=== PATIENT | female | born 1990 | race Caucasian/White ===

== ENCOUNTER 2021-10-04 05:35 | Inpatient (IN) ==
--- NOTE | 2021-09-24 11:36 | History & Physical Report ---
Date of Service September 24, 2021 Assessment & Plan (1) with 39 completed weeks gestation: (2) Previous delivery affecting , antepartum: Plan: Plan repeat . consent reviewed and signed. Risks of bleeding, transfusion, infection, poor wound healing, damage to surrounding structures with need for further surgery or hospitalization, injury to baby, heart attack, blood clot, stoke, . Questions asked and answered, consent reviewed and signed. Patient asks if I would removed the fibroid at the time of surgery. Because of concern for bleeding, we do not usually do this. History of Present Illness Chief Complaint: presents for repeat . Primary Care Provider: Bina Saha DO Patient is a 31yowf who presents at 39+ weeks for repeat . First complicated by coming into labor wtih srom, active labor and having a hand presentation into the vagina resulting in c/s for malpresentation. This has been uncomplicated. Being treated for hypothyroidism. GBS+. Patient had a pedunculated EDINSON fibroid noted at her first c/s with some omentum adhesed to it. Also I noted that there was a thin edinson. This fibroid had been noted on ultrasound in this as well. OB Labs: Blood Type AB Positive 02/27/21 Antibody Screen NEGATIVE 02/27/21 Hemoglobin 10.2 g/dL (12.0-16.0) L 08/14/21 Hematocrit 31.4 % (37-47) L 08/14/21 Mean Corpuscular Volume 84.2 fL (80-100) 02/27/21 Platelet Count 289 K/uL (130-400) 02/27/21 Rubella IgG Antibody Immune (Immune) 02/27/21 Rapid Plasma Reagin Nonreactive (Nonreactive) 02/27/21 Hepatitis B Surface Antigen Neg (Neg) 02/27/21 HIV (1&2) Ab and P24 Ag, 4th Gener Neg (Neg) 02/27/21 Glucose 1 Hour 50 gm Load 100 mg/dl (70-130) 07/17/21 OB Optional Labs: Chlamydia trachomatis RNA NOT DETECTED (NOT DETECTED) 02/27/21 Neisseria gonorrhoeae RNA NOT DETECTED (NOT DETECTED) 02/27/21 Labs Reviewed: declines cf/sma, quad, cfdna - SLN Allergies Allergy/AdvReac Type Severity Reaction Status Date / Time Penicillins Allergy itching Verified 09/24/21 09:34 Patient History Medical History Abdominal pain Acute abdominal pain Amniotic fluid leaking delivery delivered Fever Hypokalemia Malpresentation of fetus Pyelonephritis Right flank pain Second trimester Varicella vaccination Vomiting and diarrhea Surgical History S/P section Family History Other Adopted Social History Smoking Status: Never smoker Hx Alcohol Use: No Hx Substance Use: No marital status: marital status details: lives with spouse, son, in-laws, no pets Current Living Situation: Spouse and Family Current Living Situation Comment: [facility] [place] (41) [phone] current occupational status: employed current occupation: [employer] Feels Safe at Home: Yes OB History 09/2015--38 weeks, , malpresentation with hand presentation [employer] WORKER History noncontributory Physical Exam Constitutional: WD/WN, vitals as above Neck: trachea midline, no thyromegaly Respiratory: normal respiratory effort, lungs clear to auscultation Cardiovascular: RRR, no murmur, no edema Extremities: no calf tenderness and no edema Gastrointestinal (Abdomen): soft, gravid, nt Coding Level of Care Code None Diagnoses with 39 completed weeks gestation Z3A.39 Previous delivery affecting , antepartum O34.219
--- NOTE | 2021-09-30 13:22 | Anesthesiology Consultation ---
Date of Service September 30, 2021 Assessment & Plan (1) Encounter for pre-operative examination: COVID screening: Per assessment on 09/30: Travel screen negative, no known COVID- 19 positive contacts or current COVID-19 related symptoms. Patient vaccinated. Surgeon arranging preop COVID testing. Awaiting results. Chart Review Chart Review: entry level sales consultant initiated History Surgery Operation Date: 10/04/21 10:05 Proposed Procedures p Section (Delivery of Baby Through Abdominal Incision) - Deb Hollis MD, FACOG Height/Weight Height: 5 ft 2 in Weight: 54.885 kg Allergies Allergy/AdvReac Type Severity Reaction Status Date / Time Penicillins AdvReac Intermediate Vaginal Verified 09/30/21 13:20 yeast infection Medications Home Medications Medication Instructions Recorded Confirmed Last Taken prenat.vits,nahum,rzv-cmes-xtgmu 1 tab PO QAM 02/20/21 09/30/21 Unknown breast pump #1 ea 08/28/21 09/30/21 Unknown breast pump #1 ea 08/28/21 09/30/21 Unknown ferrous sulfate 325 mg (65 mg 325 mg PO QAM 09/30/21 09/30/21 Unknown iron) tablet levothyroxine 100 mcg tablet 100 mcg PO QAM 09/30/21 09/30/21 Unknown Past Medical History Medical History Hypothyroidism Past Family History Family History Other Adopted Past Surgical History Surgical History H/O wisdom tooth extraction S/P section Social History Smoking Status: Never smoker Do You Dip or Chew Tobacco: No Hx Alcohol Use: No Hx Substance Use: No substance use type: does not use Testing Laboratory Results Urine Color Cancelled 07/17/21 Unknown Urine Appearance Cancelled 07/17/21 Unknown Urine pH Cancelled 07/17/21 Unknown Ur Specific [place] Cancelled 07/17/21 Unknown Urine Protein Cancelled 07/17/21 Unknown Urine Glucose (UA) Cancelled 07/17/21 Unknown Urine Ketones Cancelled 07/17/21 Unknown Urine Nitrite Cancelled 07/17/21 Unknown Ur Leukocyte Esterase Cancelled 07/17/21 Unknown Urine WBC (Auto) Cancelled 07/17/21 Unknown Urine RBC (Auto) Cancelled 07/17/21 Unknown U Hyaline Cast (Auto) Cancelled 07/17/21 Unknown U Epithel Cells (Auto) Cancelled 07/17/21 Unknown Urine Bacteria (Auto) Cancelled 07/17/21 Unknown 07/17/21 UA negative 08/14/21 H/H 10.5/31.4
[2021-10-04] MEDS ORDERED: LACTATED RINGER'S 1,000 ML IV SCH ×2 (06:00→10:21)
[2021-10-04] MEDS ORDERED: CITRIC ACID/SODIUM CITRATE 15 ML UDC PO SCH (06:00)
[2021-10-04 06:22] LABS: Basophils # (auto) 0.01 K/uL (0-0.2); Basophils % (auto) 0.1 %; Eosinophils # (auto) 0.04 K/uL (0-0.5); Eosinophils % (auto) 0.6 %; Hemoglobin 10.5 g/dL (12.0-16.0); Immature Granulocytes # (auto) 0.01 K/uL (0.00-0.02); Immature Granulocytes % (auto) 0.1 %; Lymphocytes # (auto) 1.77 K/uL (1.2-3.4); Lymphocytes % (auto) 25.7 %; Mean Corpuscular Hemoglobin 28.3 pg (25-34); Mean Corpuscular Volume 86.3 fL (80-100); Monocytes # (auto) 0.54 K/uL (0.11-0.59); Monocytes % (auto) 7.8 %; Neutrophils # (auto) 4.52 K/uL (1.4-6.5); Neutrophils % (auto) 65.7 %; Platelet Count 208 K/uL (130-400); RDW Coefficient of Variation 14.9 % (11.5-14.5); RDW Standard Deviation 46.7 fL (36.4-46.3); Red Blood Count 3.71 M/uL (4.2-5.4); White Blood Count 6.89 K/uL (4.8-10.8)
[2021-10-04 06:24] LABS: Mean Corpuscular Hgb Conc 32.8 g/dL (32-36)
[2021-10-04] MEDS ORDERED: MoRPHine SULFATE PF 1 MG/ML 10 ML AMP/VIAL ONE (06:58)
--- NOTE | 2021-10-04 07:12 | History & Physical Bridge Note ---
Date of Service October 04, 2021 History & Physical Bridge Note I have examined the patient, reviewed the History & Physical and in the interval since the performance of the History & Physical I have noted the following changes of clinical significance: no changes noted
[2021-10-04] MEDS: ceFAZolin 2,000 MG in SYRINGE 0 ML IV SCH ×2 (07:23→07:33)
[2021-10-04] MEDS ORDERED: MoRPHine SULFATE PF 1 MG/ML 10 ML AMP/VIAL INT SPINAL ONE (07:26)
[2021-10-04] MEDS ORDERED: ePHEDrine sulfate 50 MG/ML AMP IV PRN (07:26)
[2021-10-04] MEDS ORDERED: NALOXONE HCL 0.08 MG in SYRINGE 1.8 ML IV PRN (07:26)
[2021-10-04] MEDS ORDERED: NALOXONE HCL 0.4 MG/1 ML VIAL/CARP IV PRN (07:26)
[2021-10-04] MEDS ORDERED: NALBUPHINE HCL INJ 10 MG/ML AMP IV PRN (07:26)
[2021-10-04] MEDS ORDERED: diphenhydrAMINE 50 MG/ML VIAL IV PRN (07:26)
[2021-10-04] MEDS ORDERED: ONDANSETRON INJ 2 MG/ML 2 ML VIAL IV PRN (07:26)
[2021-10-04] MEDS ORDERED: MoRPHine SULFATE 2 MG/ML CARP IV PRN (07:26)
[2021-10-04] MEDS ORDERED: PROMETHAZINE HCL 6.25 MG in SODIUM CHLORIDE 0.9% 50 ML IV PRN (07:26)
[2021-10-04] MEDS ORDERED: NALOXONE HCL 1 MG in SODIUM CHLORIDE 0.9% 1000ML 1,000 ML IV PRN (07:26)
[2021-10-04] MEDS ORDERED: LACTATED RINGER'S 500 ML IV PRN (07:26)
[2021-10-04] MEDS ORDERED: NO NARCOTICS OR SEDATIVES SCH (07:30)
[2021-10-04] MEDS ORDERED: DC INTRASPINAL MORPHINE SCH (07:30)
[2021-10-04] MEDS ORDERED: SODIUM CHLORIDE 0.9% 1000ML 1,000 ML IV SCH (07:30)
[2021-10-04] MEDS ORDERED: PHENYLEPHRINE 100MCG/ML 5ML SYR ONE (08:04)
[2021-10-04] MEDS ORDERED: ePHEDrine sulfate 50 MG/ML SYR ONE (08:04)
[2021-10-04] MEDS ORDERED: PROPOFOL IV EMULSION 10 MG/ML 20 ML VIAL IV ONE (08:04)
[2021-10-04] MEDS ORDERED: METOCLOPRAMIDE HCL INJ 5 MG/ML 2 ML VIAL ONE (08:04)
[2021-10-04] MEDS ORDERED: ONDANSETRON INJ 2 MG/ML 2 ML VIAL ONE (08:04)
[2021-10-04] MEDS ORDERED: CARBOPROST TROMETHAMINE 250 MCG/ML AMPUL ONE (08:11)
--- NOTE | 2021-10-04 08:37 | Operative Report ---
PG Post Operative Report Pre & Post Diagnosis Operation Date: 10/04/21 07:30 Pre-Op Diagnosis: 1. Term at 39 weeks. 2. Previous section, desires repeat. 3. posterior right pedunculated fibroid Post-Op Diagnosis: Same I identified the patient and participated in the time-out.: Yes Procedure Operation Date: 10/04/21 07:30 Actual Procedures p repeat lower transverse Section (Delivery of Baby Through Abdominal Incision) with the of a live male child at 0805 in Main OR 3. - Deb Hollis MD, FACOG Surgeon Deb Hollis MD, FACOG [place] Operator Dr. Garcia, Dr. Duffy Estimated Blood Loss 500 Findings Consistent with Post-Op Diagnosis viable male , nl tubes and ovaries, 3cm pedunculated posterior right fibroid, very thin charly Fluids 3000 Specimens none Drains crowley Anesthesia Type Spinal Complications none Disposition Accompanied Patient To Recovery: No Disposition: L&D Indications 31yowf at 39+ weeks for elective repeat Description of Procedure The patient was taken to the operating room where she was identified verbally and by bracelet. She was seated on the operating table where a spinal anesthetic was placed by anesthesia. She was then placed in the supine position with a leftward tilt. A Crowley catheter was placed sterilely. the patient was prepped and draped in a normal standard fashion. the anesthetic was tested and found to be adequate. A time-out was held, identifying correct patient, procedure, positioning and preoperative antibiotics. There were no concerns. A Pfannenstiel skin incision was made with a knife and taken down to the unde rlying layer of fascia with the knife and Bovie electrocautery. The keloid part of the incision was excised. Bleeding was attended to with the Bovie. The fascia was incised in the midline with the knife and taken out laterally with scissors. The superior edge of the fascial incision was grasped, elevated and the underlying layer of rectus muscle was taken off bluntly and with scissors. In a similar fashion, the inferior edge of the fascial incision was grasped, elevated and the underlying layer of rectus muscle was taken off bluntly and with scissors. The muscles were bluntly in the midline. The peritoneum was entered bluntly. The incision was then stretched. The bladder blade was placed. The vesicouterine peritoneum was identified, entered with scissors and taken out laterally with scissors. The bladder flap was created digitally A hysterotomy incision was scored with a knife and the incision was stretched superiorly and inferiorly with the flight control tower operator's fingers. The operators hand was placed into the incision and the head was delivered atraumatically. No nuchal cord. The nose and mouth were bulb suctioned. the rest of the infant was then delivered without difficulty. The nose and mouth were again bulb suctioned. The cord was clamped and cut and the was then handed off to the awaiting odd bundle worker for drying and attention. Cord blood and segment were obtained. The placenta was expressed. The uterus was exteriorized and cleared of all clot and debris with moistened laparotomy sponges. The hysterotomy incision was repaired in two layers, the first in a running locked layer, the second in an imbricating layer. The charly was quite thin. Hemostasis was noted to be good. Posterior cul-de-sac was irrigated and cleared of all clot and debris. Some filmy adhesions of the omentum to the posterior fibroid were taken off with cautery. The hysterotomy incision was again inspected and found to be hemostatic. the uterus was reinteriorized. Hysterotomy incision was again inspected and found to be hemostatic. Rectus muscles were reapproximated with several interrupted stitches of 0 Vicryl. The fascia was then reapproximated with 0 Vicryl starting at the edges and meeting in the midline. The subcuticular tissues were copiously irrigated and bleeding was attended to with cautery. Thee scarring of the incision was released with cautery. Several sub- Q stitches of 2-0 plain gut used. The skin was then closed with 4-0 Vicryl in a subcuticular fashion. All sponge, lap and needle counts correct x 2. The patient was taken to the recovery room in stable condition. I attest to the content of the Intraoperative Record and any orders documented therein. Any exceptions are noted below. OB Procedure Charges 31274
[2021-10-04 08:51] LABS: Base Excess Cord Arterial Bld -2.4 mEq/L (-9-1.8); CO2 Cord Arterial Blood 57 mmHg (39.1-73.5); HCO3 Cord Arterial Blood 26 mmol/L (19.7-28.5); PO2 Cord Arterial Blood 18 mmHg (4.1-31.7); pH Cord Arterial Blood 7.27 (7.1-7.38)
[2021-10-04 08:55] LABS: Cord Venous Blood HCO3 24 mmol/L (18.4-26.8); Cord Venous Blood PCO2 44 mmHg (30.4-57.2); Cord Venous Blood PO2 29 mmHg (14.1-43.3); Cord Venous Blood pH 7.35 (7.20-7.44); O2 Saturation Cord Venous Bld 63.5 % (<68)
[2021-10-04 08:58] LABS: Oxygen Sat Cord Arterial Blood < 60.0 % (<60)
[2021-10-04] MEDS: KETOROLAC 30 MG/ML VIAL IV PRN ×3 (09:12→22:22)
[2021-10-04] MEDS ORDERED: CARBOPROST TROMETHAMINE 250 MCG/ML AMPUL IM ONE (09:15)
[2021-10-04] MEDS ORDERED: BENZOCAINE 20% AER SPR 82.5 GM CAN EXT PRN (10:21)
[2021-10-04] MEDS ORDERED: HYDROCORTISONE ACETATE 25 MG SUPP PR PRN (10:21)
[2021-10-04] MEDS ORDERED: SUPERCREAM 0.870% 15 GM JAR EXT PRN (10:21)
[2021-10-04] MEDS ORDERED: DIPHTHERIA/TETANUS/PERTUSSIS 0.5 ML SYR/VIAL IM ONE (10:21)
[2021-10-04] MEDS ORDERED: MAGNESIUM HYDROXIDE SUSP 30 ML UDC PO PRN (10:21)
[2021-10-04] MEDS ORDERED: SENNA 8.6 MG TAB PO PRN (10:21)
[2021-10-04] MEDS: OXYTOCIN 20 UNITS in LACTATED RINGER'S 1,000 ML IV SCH ×2 (11:24→19:28)
[2021-10-04] MEDS: SIMETHICONE 80 MG CHEW PO SCH ×3 (14:18→20:57)
[2021-10-04] MEDS: LEVOTHYROXINE SODIUM 100 MCG TABLET PO SCH (14:19)
--- NOTE | 2021-10-04 14:58 | Anesthesiology Progress Note ---
Date of Service October 04, 2021 Anesthesia Post Procedure Vital Signs Vital Signs: Temp Pulse Resp BP Pulse Ox 10/04/21 11:09 79 121/59 L 10/04/21 11:08 82 100 10/04/21 11:03 77 100 10/04/21 10:59 75 117/60 10/04/21 10:58 76 100 10/04/21 10:53 78 100 10/04/21 10:50 36.8 C 20 10/04/21 10:49 75 114/59 L 10/04/21 10:48 80 100 10/04/21 10:43 76 100 10/04/21 10:39 74 117/59 L 10/04/21 10:38 81 100 10/04/21 10:33 75 100 10/04/21 10:29 69 116/69 10/04/21 10:28 73 100 10/04/21 10:23 75 100 10/04/21 10:20 71 20 111/57 L 10/04/21 10:18 79 100 10/04/21 10:13 72 100 10/04/21 10:09 67 120/62 10/04/21 10:08 64 100 10/04/21 10:04 75 117/59 L 10/04/21 10:03 80 100 10/04/21 09:58 76 100 10/04/21 09:53 78 100 10/04/21 09:50 36.6 C 10/04/21 09:48 75 100 10/04/21 09:43 74 100 10/04/21 09:40 18 10/04/21 09:39 72 119/59 L 10/04/21 09:38 69 100 10/04/21 09:33 69 100 10/04/21 09:30 69 20 115/60 10/04/21 09:28 75 100 10/04/21 09:23 65 100 10/04/21 09:20 20 10/04/21 09:19 65 108/63 10/04/21 09:18 63 100 10/04/21 09:13 67 100 10/04/21 09:10 68 18 109/66 10/04/21 09:08 78 99 10/04/21 09:03 71 100 10/04/21 09:00 76 18 111/55 L 10/04/21 08:57 67 100 10/04/21 08:52 77 100 10/04/21 08:50 36.4 C L 75 20 112/64 10/04/21 08:47 71 100 10/04/21 08:43 75 110/56 L 10/04/21 08:42 74 100 10/04/21 05:46 36.6 C 10/04/21 05:45 81 119/65 Pain Intensity Lower Abdomen: Pain Intensity: 4 Transfer of Care Handoff Completed per policy Notes Mental Status: alert / awake / arousable Patient Amnestic to Procedure: Yes Nausea / Vomiting: adequately controlled Pain: adequately controlled Airway Patency, RR, SpO2: stable & adequate BP & HR: stable & adequate Hydration State: stable & adequate Neuraxial Anesthesia: was administered and sensory block is resolving Anesthetic Complications: no major complications apparent
[2021-10-04] MEDS: DOCUSATE SODIUM 100 MG CAP PO SCH (20:57)
[2021-10-05] MEDS ORDERED: PROMETHAZINE HCL 25 MG in SODIUM CHLORIDE 0.9% 50 ML IV PRN (01:26)
[2021-10-05] MEDS ORDERED: KETOROLAC 30 MG/ML VIAL IV PRN (01:30)
[2021-10-05] MEDS ORDERED: ONDANSETRON INJ 2 MG/ML 2 ML VIAL IV PRN (01:30)
[2021-10-05] MEDS ORDERED: diphenhydrAMINE Capsule 25 MG CAP PO PRN (01:30)
[2021-10-05] MEDS ORDERED: diphenhydrAMINE 50 MG/ML VIAL IV PRN (01:30)
[2021-10-05] MEDS: oxyCODONE/ACETAMINOPHEN 5mg/325mg TAB PO PRN ×4 (04:38→20:42)
[2021-10-05] MEDS: IBUPROFEN 600 MG TAB PO PRN ×4 (04:39→20:41)
[2021-10-05] MEDS: LEVOTHYROXINE SODIUM 100 MCG TABLET PO SCH (06:03)
--- NOTE | 2021-10-05 06:18 | Obstetrical Progress Note ---
Date of Service <Laina Duffy DO - Last Filed: 10/05/21 06:35> October 05, 2021 Assessment & Plan <Laina Duffy DO - Last Filed: 10/05/21 06:35> (1) Hypothyroidism: (2) Encounter for care and examination after delivery: 31 yo post op day1 from c/s with hypothyroidism, doing well. -Continue routine post care. -vital signs reviewed and WNL (Tmax 36.9) -Blood Type AB+, GBS+, Rubella immune -Encourage ambulation, monitor and control pain with Motrin, tylenol PRN, resume regular diet, monitor lochia -encourage breast feeding -hemoglobin 10.5 -keep surgical site clean and dry Day #:: 1 <Caroline Garcia MD - Last Filed: 10/05/21 07:37> (1) Hypothyroidism: (2) Encounter for care and examination after delivery: Subjective <Laina Duffy DO - Last Filed: 10/05/21 06:35> Ambulation: ambulating normally Voiding: no voiding problems Passing Gas:: No Diet Tolerance:: regular diet Lochia:: Small Feeding Type:: breast feeding Current Pain Level(1-10): 0 (pain well controlled on medication) Review of Systems Denies fever, chills, sweats Denies shortness of breath, difficulty breathing, chest pain, palpitations, chest pressure. Denies breast pain. Denies dysuria. Denies headache or changes in vision. Physical Exam <Laina Duffy DO - Last Filed: 10/05/21 06:35> General: Alert, oriented. No acute distress. Cardiac: Regular rate and rhythm, no murmurs/rubs/gallops. Respiratory: Clear to auscultation bilaterally a/p, no wheezes/rales/rhonchi. No increased work of breathing. Symmetrical chest rise. No respiratory distress. Abdomen: Soft, nontender, nondistended. Bowel sounds present. Uterus: Uterine fundus firm, palpable at and to the right of umbilicus. Surgical scar clean and healing well. Lower Extremities: No lower extremity edema or swelling. No deep calf pain. Honey's negative bilaterally. Results & Data ([facility]) <Laina Duffy DO - Last Filed: 10/05/21 06:35> Vital Signs (Past 12 Hours) Vital Signs Temp Pulse Resp BP Pulse Ox Pulse Ox 10/05/21 04:20 36.9 C 71 16 101/59 L 10/05/21 01:20 16 99 10/05/21 00:20 18 98 10/04/21 23:20 37.1 C 74 18 114/68 99 99 10/04/21 22:01 20 99 10/04/21 21:00 20 98 10/04/21 20:00 37.0 C 74 20 122/72 100 10/04/21 19:00 20 100 <Caroline Garcia MD - Last Filed: 10/05/21 07:37> Co-Signing Physician Notes Resident Physician Supervision Note: I interviewed and examined the patient. Discussed with Dr. Duffy and agree with findings and plan as documented in the note. Any exceptions or clarifications are listed here: POD1 s/p rLTCS. Not yet passing gas but feels like something i s starting. VSS, exam benign. Steri-strips with dried blood from dressing being re-done yesterday but incision appears c/d/i. Continue routine pp care Documented By: Caroline Garcia MD Resident Activity Tracking <Laina Duffy DO - Last Filed: 10/05/21 06:35> Resident Involvement: Resident Care Provided Care Provided: OB Delivery
[2021-10-05 06:42] LABS: Basophils # (auto) 0.02 K/uL (0-0.2); Basophils % (auto) 0.2 %; Eosinophils # (auto) 0.03 K/uL (0-0.5); Eosinophils % (auto) 0.3 %; Hematocrit (blood only) 28.9 % (37-47); Hemoglobin 9.7 g/dL (12.0-16.0); Immature Granulocytes # (auto) 0.03 K/uL (0.00-0.02); Immature Granulocytes % (auto) 0.3 %; Lymphocytes # (auto) 0.95 K/uL (1.2-3.4); Lymphocytes % (auto) 8.5 %; Mean Corpuscular Hemoglobin 29.3 pg (25-34); Mean Corpuscular Hgb Conc 33.6 g/dL (32-36); Mean Corpuscular Volume 87.3 fL (80-100); Mean Platelet Volume 11.9 fL (7.4-10.4); Monocytes # (auto) 0.75 K/uL (0.11-0.59); Monocytes % (auto) 6.7 %; Platelet Count 182 K/uL (130-400); RDW Coefficient of Variation 14.9 % (11.5-14.5); RDW Standard Deviation 47.8 fL (36.4-46.3); Red Blood Count 3.31 M/uL (4.2-5.4); White Blood Count 11.18 K/uL (4.8-10.8)
[2021-10-05] MEDS: PRENATAL VITAMIN 1 TAB PO SCH (08:28)
[2021-10-05] MEDS: DOCUSATE SODIUM 100 MG CAP PO SCH ×2 (08:28→20:42)
[2021-10-05] MEDS: FERROUS SULFATE 325 MG TAB PO SCH (08:28)
[2021-10-05] MEDS: SIMETHICONE 80 MG CHEW PO SCH ×4 (08:28→20:42)
[2021-10-05] MEDS ORDERED: bisacodyL 5 MG TABEC PO SCH (20:00)
[2021-10-06] MEDS: oxyCODONE/ACETAMINOPHEN 5mg/325mg TAB PO PRN ×2 (01:27→06:28)
[2021-10-06] MEDS: IBUPROFEN 600 MG TAB PO PRN ×3 (01:28→13:43)
[2021-10-06 05:56] LABS: Hematocrit (blood only) 28.1 % (37-47); Hemoglobin 9.1 g/dL (12.0-16.0)
[2021-10-06] MEDS: LEVOTHYROXINE SODIUM 100 MCG TABLET PO SCH (06:31)
--- NOTE | 2021-10-06 07:07 | Obstetrical Progress Note ---
Date of Service October 06, 2021 Assessment & Plan (1) S/P section: (2) care and examination of lactating mother: Patient doing well, ppd/pod 2. Meeting discharge criteria . Patient would like d/c because her son's birthday is tomorrow. Instructions reviewed. Subjective Ambulation: ambulating normally Voiding: no voiding problems Passing Gas:: Yes Diet Tolerance:: regular diet Lochia:: Small Feeding Type:: breast feeding Notes much more crampy this time around and harder to control. Physical Exam Constitutional WD/WN, vitals as above Cardiovascular Extremities: no calf tenderness and no edema Gastrointestinal (Abdomen) soft, nt, nd ff/nt at 1 below u incision --c/d/i Results & Data ([facility]) Vital Signs (Past 12 Hours) Vital Signs Temp Pulse Resp BP Pulse Ox 10/05/21 23:50 36.8 C 73 17 109/71 97 10/05/21 20:30 37.2 C 75 16 108/66 97
[2021-10-06] MEDS ORDERED: bisacodyL 10 MG SUPP PR PRN (08:29)
[2021-10-06] MEDS: FERROUS SULFATE 325 MG TAB PO SCH (09:04)
[2021-10-06] MEDS: PRENATAL VITAMIN 1 TAB PO SCH (09:04)
[2021-10-06] MEDS: DOCUSATE SODIUM 100 MG CAP PO SCH (09:04)
[2021-10-06] MEDS: SIMETHICONE 80 MG CHEW PO SCH ×2 (09:05→13:40)
--- NOTE | 2021-10-08 11:47 | Discharge Summary (DS) ---
DATE OF ADMISSION: 10/04/2021. DATE OF DISCHARGE: 10/06/2021. ADMISSION DIAGNOSES: 1. at 39 completed weeks. 2. Previous section, desires repeat. POSTOPERATIVE DIAGNOSES. 1. at 39 completed weeks. 2. Previous section, desires repeat. PROCEDURE: Repeat lower transverse section. HISTORY OF PRESENT ILLNESS: The patient is a 31-year-old white female, 2, para 1-0-0-1, who presents at 39+ weeks for repeat . Her first was complicated by coming in to labo r with SROM, active labor and having a hand presenting into the vagina, resulting in a for malpresentation. This has been uncomplicated. She is being treated for hypothyroidism. S he is GBS positive, but unruptured. The patient had a pedunculated lower uterine segment fibroid not ed at her first with some omentum adhesed to it. Also was noted a thin lower uterine segme nt. This fibroid has been noted on ultrasound in this as well and has been stable. For th e rest of the patient's detailed history and physical, please see her dictated history and physical. ASSESSMENT: This is a G2, P1 at 39 weeks, coming in for repeat section. HOSPITAL COURSE: The patient was admitted and underwent a repeat lower transverse section w ithout difficulty. Estimated blood loss 500 mL. She delivered a viable male infant. She had normal tubes and ovaries bilaterally. There was a 3 cm pedunculated posterior right lower segment fibroid and a very thin lower uterine segment noted. The patient's postoperative course was uncomplicated. She tolerated a regular diet, ambulated without difficulty, voided without difficulty after the remov al of her Sibley catheter, tolerated a regular diet. Admit H and H was 10.5 and 32.0. Discharge H and H was 9.1 and 28.1. She was discharged on postoperative day 2, to return in 6 weeks for postoperati ve check. Job ID: [id number]
== END 2021-10-06 14:15 | disposition home or self-care (01) | DRG 788 ==
LOC: 4S1 05:35 → EDSTATUS 10:05 → 4S2 11:15